=== PATIENT | male | born 1955 | race Caucasian/White ===

== ENCOUNTER 2019-01-07 22:47 | Emergency (ER) | payer MEDICARE, OTHER ==
[2019-01-08] MEDS ORDERED: TRIAMCINOLONE 0.1% CREAM 15 GM TUBE TOP STA (00:26)
[2019-01-08] MEDS ORDERED: TRIAMCINOLONE 0.1% CREAM 15 GM TUBE TOP ONE (00:45)
--- NOTE | 2019-01-08 00:50 | ED Physician Documentation ---
PD HPI SKIN - Stated complaint Stated Complaint: SWOLLEN BUMP/HAND - Chief complaint Chief Complaint: Wound - History obtained from History obtained from: Patient - History of Present Illness Timing - onset: Yesterday Timing - details: Still present Location: LUE Quality / character: Itchy, Discolored Contributing factors: Unknown Similar symptoms before: Has not had sx before - Additional information Additional information: The patient is a 63-year-old male who presents with a patch of redness and swelling on his left hand. He first noticed it yesterday when it began itching. It has become more prominent today. Other than itching he denies associated pain. He denies fever. He denies traumatic injury, and is unaware of insect bite or sting, or exposure to trena or other environmental noxious substance. He denies history of similar symptoms in the past. Review of Systems Constitutional: denies: Fever Nose: denies: Congestion Throat: denies: Sore throat Respiratory: denies: Cough GI: denies: Nausea, Vomiting Skin: reports: Rash (Left hand.) Musculoskeletal: denies: Back pain Neurologic: denies: Focal weakness, Numbness, Headache PD PAST MEDICAL HISTORY - Past Medical History Cardiovascular: Hypertension, High cholesterol Respiratory: Pneumonia - Past Surgical History Past Surgical History: Yes Cardiovascular: Coronary stent - Present Medications Home Medications: Ambulatory Orders Medication Instructions Recorded Confirmed Aspirin [Adult Low Dose Aspirin EC] 81 mg PO DAILY 10/24/15 01/07/19 Furosemide [Lasix] 80 mg PO DAILY 10/24/15 01/07/19 Nifedipine [Adalat cc] 60 mg PO DAILY 10/24/15 01/07/19 Albuterol 1 puffs INH Q4H PRN 04/05/16 01/07/19 Atorvastatin [Lipitor] 20 mg PO DAILY 04/05/16 01/07/19 Furosemide 40 mg PO DAILY PM 04/05/16 01/07/19 Multivitamin [Multivitamins] 1 each PO DAILY 04/05/16 01/07/19 Spironolactone 25 mg PO DAILY 04/05/16 01/07/19 Tiotropium [place] [Spiriva] 2 puffs IH DAILY 04/05/16 01/07/19 Vitamin B Complex 1 each PO DAILY 04/05/16 01/07/19 Triamcinolone 0.1% Cream [Kenalog 1 gm TOP BID #1 tube 01/08/19 0.1% Cream] - Allergies Allergies/Adverse Reactions: Allergies Allergy/AdvReac Type Severity Reaction Status Date / Time No Known Drug Allergies Allergy Verified 01/07/19 23:02 - Social History Does the pt smoke?: No Smoking Status: Never smoker Does the pt drink ETOH?: Yes Does the pt have substance abuse?: No - Immunizations Immunizations are current?: Yes - POLST Patient has POLST: No PD ED PE NORMAL - Vitals Vital signs reviewed: Yes (Borderline systolic hypertension initially.) - General General: Alert and oriented X 3, Well developed/nourished - HEENT HEENT: Atraumatic - Cardiac Cardiac: RRR - Respiratory Respiratory: Clear bilaterally, Other (Receiving supplemental oxygen by nasal cannula.) - Abdomen Abdomen: Soft, Non tender - Derm Derm: Other (There is a slightly raised, slightly erythematous 1.5 cm patch on the dorsum of the left hand at the base of the index finger. There are few very tiny vesicles, giving the impression of contact dermatitis with trena. There is no associated tenderness to palpation. He has full flexion and extension at the DIP, PIP and MCP joints. Distal neurovascular is intact.) - Extremities Extremities: No edema, No calf tenderness / cord - Neuro Neuro: Alert and oriented X 3, No motor deficit, Normal speech Results - Vitals Vitals: Vital Signs - 24 hr 01/07/19 01/08/19 22:57 00:57 Temperature 36.3 C L 36.7 C Heart Rate 97 80 Respiratory 17 16 Rate Blood Pressure 141/72 H 133/78 H O2 Saturation 92 97 Oxygen O2 Source [With Activity] Nasal cannula O2 Source Nasal cannula Oxygen Flow Rate 4 PD MEDICAL DECISION MAKING - ED course Complexity details: considered differential, d/w patient ED course: The patient's presentation is most consistent with a localized reaction suggestive of contact dermatitis or possibly an insect or arachnoid sting or bite. Examination does not suggest cellulitis. Fungal infection would be a consideration, although would be unlikely given the rapid onset. Treatment in the emergency department included application of 0.1% triamcinolone cream topically. He is being discharged with prescription for triamcinolone cream. I discussed with him the likely diagnosis, symptomatic treatment and outpatient follow-up, as well as potentially worrisome signs or symptoms that should prompt reevaluation in the emergency department. Departure - Departure Disposition: 01 Home, Self Care Clinical Impression: Dermatitis Condition: Stable Instructions: ED Dermatitis Non Specific Rash Follow-Up: EMRE RUSSELL DO [Primary Care Provider] - Prescriptions: Triamcinolone 0.1% Cream [Kenalog 0.1% Cream] 1 gm TOP BID #1 tube Comments: Apply triamcinolone cream to the affected area twice daily as prescribed. Follow-up with your primary physician within 1 week for reevaluation. Return to the emergency department if increasing redness, swelling, pain, or otherwise worsening symptoms. Discharge Date/Time: 01/08/19 00:57
[2019-01-08 00:59] VITALS: BP 133/78
== END 2019-01-08 00:57 | disposition home or self-care (01) ==
LOC: ED 22:47
DX: L30.9 Dermatitis, unspecified (principal); I10 Essential (primary) hypertension; Z79.82 Long term (current) use of aspirin
CPT/HCPCS: 99283; A9270

== ENCOUNTER 2023-05-01 16:03 | Emergency (ER) | payer MEDICARE, OTHER ==
[2023-05-01] MEDS ORDERED: IPRATROPIUM/ALBUTEROL 3 ML NEB INH STA (16:26)
[2023-05-01] MEDS ORDERED: methylPREDNISolone SUCCINATE 125 MG/2 ML VIAL IVP STA (16:26)
--- NOTE | 2023-05-01 16:28 | ED Physician Documentation ---
PD HPI DYSPNEA - Stated complaint Stated Complaint: SOA - Chief complaint Chief Complaint: Resp - History obtained from History obtained from: Patient - Additional information Additional information: 68-year-old gentleman with history of pulmonary hypertension and COPD. Tobacco abuse in remission, quitting 9 years ago. He wears oxygen, 2 L all the time. He has been getting sick over the last 5 days or so with nonproductive cough and shortness of breath. His oxygen saturations were dwindling down but bottomed out today at 77 on 2 L. He denies pedal edema, calf pain, chest pain. PD PAST MEDICAL HISTORY - Past Medical History Cardiovascular: Hypertension, High cholesterol Respiratory: Pneumonia - Past Surgical History Past Surgical History: Yes Cardiovascular: Coronary stent - Present Medications Home Medications: Ambulatory Orders Medication Instructions Recorded Confirmed Aspirin [Adult Low Dose Aspirin EC] 81 mg PO DAILY 10/24/15 01/07/19 Furosemide [Lasix] 80 mg PO DAILY 10/24/15 01/07/19 NIFEdipine [Adalat cc] 60 mg PO DAILY 10/24/15 01/07/19 Albuterol 1 puffs INH Q4H PRN 04/05/16 01/07/19 Furosemide 40 mg PO DAILY PM 04/05/16 01/07/19 Multivitamin [Multivitamins] 1 each PO DAILY 04/05/16 01/07/19 Spironolactone 25 mg PO DAILY 04/05/16 01/07/19 Vitamin B Complex 1 each PO DAILY 04/05/16 01/07/19 Triamcinolone 0.1% Cream [Kenalog 1 gm TOP BID #1 tube 01/08/19 0.1% Cream] Rosuvastatin Calcium [Crestor] 40 mg PO DAILY 12/06/22 Tiotropium [place] [Spiriva 2 puffs INH DAILY 12/06/22 Respimat] Doxycycline [Vibramycin] 100 mg PO BID #14 tablet 05/01/23 Ipratropium/Albuterol [Duoneb] 3 ml INH Q6H #30 ea 05/01/23 Nebulizer 1 each MC QID #1 ea 05/01/23 predniSONE [Deltasone] 20 mg PO [id number] #21 tab 05/01/23 - Allergies Allergies/Adverse Reactions: Allergies Allergy/AdvReac Type Severity Reaction Status Date / Time No Known Drug Allergies Allergy Verified 10/08/23 16:09 - Social History Does the pt smoke?: No Smoking Status: Never smoker Does the pt drink ETOH?: Yes Does the pt have substance abuse?: No - Immunizations Immunizations are current?: Yes - POLST Patient has POLST: No PD ED PE NORMAL - Vitals Vital signs reviewed: Yes - General General: Alert and oriented X 3, No acute distress - HEENT HEENT: PERRL, EOMI - Neck Neck: Supple, no meningeal sign, No bony TTP - Cardiac Cardiac: RRR, No murmur - Respiratory Respiratory: Other (Mildly labored breathing but speaking in full sentences. Diminished throughout especially both bases, right worse than left with expiratory wheezing.) - Extremities Extremities: No edema, No calf tenderness / cord - Neuro Neuro: Alert and oriented X 3, Normal speech Results - Vitals Vitals: Vital Signs - 24 hr 05/01/23 05/01/23 05/01/23 16:09 16:48 16:51 Temperature 37 C Heart Rate 90 84 80 Respiratory 18 17 14 Rate Blood Pressure 114/69 128/73 O2 Saturation 85 L 100 If not protocol 4 6 : Oxygen Flow, liters/minute 05/01/23 05/01/23 17:12 17:30 Temperature 37.5 C Heart Rate 75 80 Respiratory 18 18 Rate Blood Pressure 132/78 H 130/80 O2 Saturation 97 96 If not protocol 5 4 : Oxygen Flow, liters/minute Oxygen O2 Source [] Nasal cannula O2 Source Nasal cannula Oxygen Flow Rate 6 - Labs Labs: Laboratory Tests 05/01/23 05/01/23 05/01/23 16:31 16:31 16:31 WBC 10.5 RBC 4.07 L Hgb 11.5 L Hct 39.6 L MCV 97.3 H MCH 28.3 MCHC 29.0 L RDW 13.6 Plt Count 188 MPV 10.4 Neut # (Auto) 9.0 H Lymph # (Auto) 0.7 L [place] # (Auto) 0.6 Eos # (Auto) 0.1 Baso # (Auto) 0.1 Absolute Nucleated RBC 0.00 Nucleated RBC % 0.0 VBG pH 7.410 VBG pCO2 81.7 H VBG pO2 27.2 VBG HCO3 50.6 H VBG Total CO2 53.1 H VBG O2 Saturation 59.0 L VBG Base Excess 21.5 H Sodium 142 Potassium 3.4 L Chloride 85 L Carbon Dioxide > 45 H* Anion Gap TNP BUN 20 Creatinine 0.9 Estimated GFR (MDRD) 83 L Glucose 157 H Calcium 10.2 Phosphorus 3.4 Magnesium 1.9 Total Bilirubin 0.7 AST 21 ALT 16 Alkaline Phosphatase 47 Total Protein 6.6 Albumin 4.4 Globulin 2.2 Albumin/Globulin Ratio 2.0 Nasal Adenovirus (PCR) Nasal B. parapertussis DNA (PCR) Nasal Coronavir 229E PCR Nasal Coronavir HKU1 PCR Nasal Coronavir NL63 PCR Nasal Coronavir OC43 PCR Nasal Enterovir/Rhinovir PCR Nasal Influenza B PCR Nasal Influenza A PCR Nasal Parainfluen 1 PCR Nasal Parainfluen 2 PCR Nasal Parainfluen 3 PCR Nasal Parainfluen 4 PCR Nasal RSV (PCR) Nasal B.pertussis DNA PCR Nasal C.pneumoniae (PCR) [place] Human Metapneumo PCR Nasal M.pneumoniae (PCR) Nasal SARS-CoV-2 (PCR) 05/01/23 16:45 WBC RBC Hgb Hct MCV MCH MCHC RDW Plt Count MPV Neut # (Auto) Lymph # (Auto) [place] # (Auto) Eos # (Auto) Baso # (Auto) Absolute Nucleated RBC Nucleated RBC % VBG pH VBG pCO2 VBG pO2 VBG HCO3 VBG Total CO2 VBG O2 Saturation VBG Base Excess Sodium Potassium Chloride Carbon Dioxide Anion Gap BUN Creatinine Estimated GFR (MDRD) Glucose Calcium Phosphorus Magnesium Total Bilirubin AST ALT Alkaline Phosphatase Total Protein Albumin Globulin Albumin/Globulin Ratio Nasal Adenovirus (PCR) NOT DETECTED Nasal B. parapertussis DNA (PCR) NOT DETECTED Nasal Coronavir 229E PCR NOT DETECTED Nasal Coronavir HKU1 PCR NOT DETECTED Nasal Coronavir NL63 PCR NOT DETECTED Nasal Coronavir OC43 PCR NOT DETECTED Nasal Enterovir/Rhinovir PCR NOT DETECTED Nasal Influenza B PCR NOT DETECTED Nasal Influenza A PCR NOT DETECTED Nasal Parainfluen 1 PCR NOT DETECTED Nasal Parainfluen 2 PCR NOT DETECTED Nasal Parainfluen 3 PCR NOT DETECTED Nasal Parainfluen 4 PCR NOT DETECTED Nasal RSV (PCR) NOT DETECTED Nasal B.pertussis DNA PCR NOT DETECTED Nasal C.pneumoniae (PCR) NOT DETECTED [place] Human Metapneumo PCR NOT DETECTED Nasal M.pneumoniae (PCR) NOT DETECTED Nasal SARS-CoV-2 (PCR) NOT DETECTED - Rads (name of study) Single view chest x-ray shows hyperinflation without other acute abnormality. No infiltrate. Relevant Findings:: Final report received, EMP independent interpretation of test PD Medical Decision Making - ED course ED course: CBC showing modest anemia, mild lymphopenia. Venous blood gas showing a pH of 7.41 and a CO2 of 81 suggestive of chronic retention. His last blood gas was 7 years ago at which time he was not acidotic with a CO2 of 68 suggesting a progression of his CO2 retention. CMP notable for carbon dioxide greater than 45 again likely from chronic CO2 retention. In 2016 his CO2's were in the high 30s, again this represents a progression of his CO2 retention. 68-year-old gentleman presents with exacerbation of COPD with clear x-ray. Feeling much better after IV steroids and a DuoNeb here, back down to 3 L, he wears 3 to 4 L at baseline at home with acceptable pulse oximetry is in the low 90s and he request discharge. Departure - Departure Disposition: Home, Self Care Clinical Impression: COPD exacerbation Condition: Good Record reviewed to determine appropriate education?: Yes Instructions: ED COPD Flare Prescriptions: predniSONE [Deltasone] 20 mg PO [id number] #21 tab Ipratropium/Albuterol [Duoneb] 3 ml INH Q6H #30 ea Nebulizer 1 each MC QID #1 ea Doxycycline [Vibramycin] 100 mg PO BID #14 tablet Comments: You were seen today for an exacerbation of COPD. COVID test was negative and the x-ray showed no pneumonia. We gave you antibiotics and steroids and a nebulizer and you are doing much better, back to kind of baseline oxygen levels for you. Return if worse, follow-up with your primary this week for reevaluation. Forms: PCP List
[2023-05-01 16:37] LABS: BASOPHILS # (AUTO) 0.1 10^3/uL (0.0-0.1); BASOPHILS % (AUTO) 0.5 %; EOSINOPHILS # (AUTO) 0.1 10^3/uL (0.0-0.7); HCT - HEMATOCRIT 39.6 % (42.0-52.0); HGB - HEMOGLOBIN 11.5 g/dL (14.0-18.0); LYMPHOCYTES # (AUTO) 0.7 10^3/uL (1.5-3.5); LYMPHOCYTES % (AUTO) 6.2 %; MEAN CORPUSCULAR HEMOGLOBIN 28.3 pg (27.0-31.0); MEAN CORPUSCULAR VOLUME 97.3 fL (80.0-94.0); MEAN PLATELET VOLUME 10.4 fL (7.4-11.4); MONOCYTES # (AUTO) 0.6 10^3/uL (0.0-1.0); MONOCYTES % (AUTO) 5.8 %; NEUTROPHILS % (AUTO) 86.2 %; PLT - PLATELET COUNT 188 10^3/uL (130-450); RED BLOOD COUNT 4.07 10^6/uL (4.70-6.10); RED CELL DISTRIBUTION WIDTH 13.6 % (12.0-15.0); WHITE BLOOD COUNT 10.5 x10^3/uL (4.8-10.8)
[2023-05-01 16:38] LABS: VBG BASE EXCESS 21.5 mmol/L (-2 - +2); VBG HCO3 50.6 mmol/L (23-28); VBG PCO2 81.7 mmHg (41-51); VBG PH 7.41 (7.31-7.41); VBG PO2 27.2 mmHg (25-47); VBG TOTAL CO2 53.1 mmol/L (24-29)
[2023-05-01 16:53] LABS: ALBUMIN 4.4 g/dL (3.2-5.5); MAGNESIUM 1.9 mg/dL (1.7-2.3); PHOSPHORUS 3.4 mg/dL (2.5-5.0)
--- NOTE | 2023-05-01 17:00 | XRAY Report ---
PROCEDURE: Chest 1 View X-Ray INDICATIONS: dyspnea TECHNIQUE: One view of the chest was acquired. COMPARISON: 10/28/2015 FINDINGS: Surgical changes and devices: None. Lungs and pleura: No pleural effusions or pneumothorax. No gonzález infiltrates are seen. The lungs are hyperexpanded. Mediastinum: Mediastinal contours appear normal. Heart size is normal. Bones and chest wall: No suspicious bony lesions. Overlying soft tissues appear unremarkable. IMPRESSION: Hyperexpanded lungs are seen, without an acute cardiopulmonary abnormality seen. Reviewed by: Senthil Lacey MD on 05/01/2023 3:59 PM TAWANDA Approved by: Senthil Lacey MD on 05/01/2023 3:59 PM TAWANDA Station ID: [id number]
[2023-05-01 17:04] LABS: ALKALINE PHOSPHATASE 47 IU/L (42-121); ALT ALANINE AMINOTRANSFERASE 16 IU/L (10-60); AST ASPARTATE AMINOTRANSFERASE 21 IU/L (10-42); BILIRUBIN,TOTAL 0.7 mg/dL (0.2-1.0); BUN - BLOOD UREA NITROGEN 20 mg/dL (6-20); CALCIUM 10.2 mg/dL (8.5-10.3); CARBON DIOXIDE - CO2 > 45 mmol/L (21-32); CHLORIDE 85 mmol/L (101-111); CREATININE 0.9 mg/dL (0.6-1.3); GFR - MDRD 83 (>89); GLUCOSE 157 mg/dL (74-104); POTASSIUM 3.4 mmol/L (3.5-4.5); SODIUM 142 mmol/L (135-145); TOTAL PROTEIN 6.6 g/dL (6.4-8.9)
[2023-05-01 17:35] VITALS: O2SAT 96
[2023-05-01 17:51] LABS: B. PARAPERTUSSIS- RESP PCR PAN NOT DETECTED; B. PERTUSSIS- RESP PCR PANEL NOT DETECTED; C. PNEUMONIAE- RESP PCR PANEL NOT DETECTED; CORONAVIRUS 229E-RESP PCR NOT DETECTED; CORONAVIRUS HKU1-RESP PCR NOT DETECTED; CORONAVIRUS NL63-RESP PCR NOT DETECTED; CORONAVIRUS OC43-RESP PCR NOT DETECTED; HUMAN METAPNEUMOVIRUS NOT DETECTED; INFLUENZA A- RESP PCR PANEL NOT DETECTED; INFLUENZA B - RESP PCR PANEL NOT DETECTED; M. PNEUMONIAE- RESP PCR PANEL NOT DETECTED; PARAINFLUENZA VIRUS 1 NOT DETECTED; PARAINFLUENZA VIRUS 2 NOT DETECTED; PARAINFLUENZA VIRUS 3 NOT DETECTED; PARAINFLUENZA VIRUS 4 NOT DETECTED; RHINOVIRUS/ENTEROVIRUS NOT DETECTED; RSV- RESP PCR PANEL NOT DETECTED; SARS-CoV-2 -RESP PCR PANEL NOT DETECTED
[2023-05-01] MEDS ORDERED: DOXYCYCLINE 100 MG TABLET PO STA (18:06)
[2023-05-01 18:25] VITALS: BP 116/90
== END 2023-05-01 18:24 | disposition home or self-care (01) ==
LOC: ED 16:03
DX: J44.1 Chronic obstructive pulmonary disease with (acute) exacerbation (principal); I10 Essential (primary) hypertension; Z87.891 Personal history of nicotine dependence; Z20.822 Contact with and (suspected) exposure to COVID-19
CPT/HCPCS: 36415; 71045; 80053; 82803; 83735; 84100; 85025; 87633; 94640; 96374; 99284; A9270